=== PATIENT | male | born 1945 | race Caucasian/White ===

== ENCOUNTER 2019-05-12 11:56 | Outpatient (REF) | payer MEDICARE, SELFPAY ==
[2019-05-12 20:21] LABS: Anion Gap 8.7 mmol/L (3-11); BUN 22 mg/dL (7-18); CO2 28.3 mmol/L (21.0-32.0); CREATININE 1.01 mg/dL (0.70-1.30); Calcium 8.8 mg/dL (8.5-10.1); Chloride 105 mmol/L (98-107); Glucose 184 mg/dL (70-100); Potassium 4.5 mmol/L (3.5-5.1); Sodium 142 mmol/L (136-145)
[2019-05-15 10:43] LABS: PSA, Screening 2.9 ng/ml (0-6.5)
== END 2019-05-12 12:16 ==
LOC: NCHCN 11:56
PROVIDERS: PCP Nurse Practitioner Family; Visit Provider Nurse Practitioner Family
DX: N40.0 Benign prostatic hyperplasia without lower urinary tract symptoms (principal); Z12.5 Encounter for screening for malignant neoplasm of prostate; I10 Essential (primary) hypertension
CPT/HCPCS: 80048; 84153

== ENCOUNTER 2020-03-05 10:38 | Outpatient (REF) | payer MEDICARE, BC, SELFPAY ==
[2020-03-05 19:39] LABS: Absolute Basophil Count 0.01 k/cumm (0.0-0.2); Absolute Eosinophil Count 0.09 k/cumm (0.0-0.7); Absolute Lymphocyte Count 1.07 k/cumm (1.2-3.4); Absolute Monocyte Count 0.43 k/cumm (0.11-0.7); Absolute Neutrophil Count 2.28 k/cumm (1.2-6.7); Basophils % 0.3; Eosinophils % 2.3; HCT 42.4 % (40.0-50.0); Lymphocytes % 27.6; Mean Corpuscular Hemoglobin 31.4 pg (27.0-33.0); Mean Corpuscular Volume 95.1 fL (80-95); Mean Platelet Volume 11.1 fL (8.0-11.0); Monocytes % 11.1; Neutrophils % 58.7; Platelet Count 176 x1000/uL (130-400); RBC 4.46 m/cumm (4.50-6.00); RBC Distribution Width 14.4 % (11.8-14.1); White Blood Cell Count 3.88 k/cumm (4.4-10.8)
[2020-03-05 19:52] LABS: Hemoglobin A1C 8.5 % (3.8-5.6)
[2020-03-05 19:57] LABS: ALT 52 U/L (16-63); AST 26 U/L (15-37); Albumin 3.6 g/dL (3.4-5.0); Alkaline Phosphatase 95 U/L (46-116); Anion Gap 5.7 mmol/L (3-11); BUN 21 mg/dL (7-18); Bilirubin, Total 0.6 mg/dL (0.2-1.0); CO2 27.3 mmol/L (21.0-32.0); Calcium 8.6 mg/dL (8.5-10.1); Calculated LDL 96 mg/dL (<100); Chloride 104 mmol/L (98-107); Cholesterol 167 mg/dL (<200); Glucose 214 mg/dL (74-106); HDL Cholesterol 29 mg/dL (40-60); Potassium 4.7 mmol/L (3.5-5.1); Sodium 137 mmol/L (136-145); TSH (W/Ref FT4) 1.25 uIU/mL (0.36-3.74); Total Protein 6.2 g/dL (6.4-8.2); Triglyceride 210 mg/dL (<150)
== END 2020-03-05 10:58 ==
LOC: NCHCN 10:38
PROVIDERS: PCP Nurse Practitioner Family; Visit Provider Physician Assistant
DX: I10 Essential (primary) hypertension (principal); N40.0 Benign prostatic hyperplasia without lower urinary tract symptoms; E11.9 Type 2 diabetes mellitus without complications; E78.5 Hyperlipidemia, unspecified
CPT/HCPCS: 80053; 80061; 83036; 84443; 85025

== ENCOUNTER 2020-06-05 13:12 | Outpatient (REF) | payer MEDICARE, BC, SELFPAY ==
[2020-06-05 21:48] LABS: COMMENT (LAB VIEW ONLY) 111.21 mg/dL; Microalb ug/mg Crea 6.9 ug/mg Cr
== END 2020-06-05 13:32 ==
LOC: NCHCN 13:12
PROVIDERS: PCP Nurse Practitioner Family; Visit Provider Physician Assistant
DX: E11.9 Type 2 diabetes mellitus without complications (principal)
CPT/HCPCS: 82043; 82570

== ENCOUNTER 2022-02-12 19:31 | Outpatient (REF) | payer MEDICARE, BC, SELFPAY ==
[2022-02-12 20:19] LABS: Vitamin B12 350 pg/mL (193-986)
== END 2022-02-12 19:32 | disposition home or self-care (01) ==
LOC: NCHCN 19:31
PROVIDERS: PCP Nurse Practitioner Family; Visit Provider Nurse Practitioner Family
DX: R20.0 Anesthesia of skin (principal); R20.2 Paresthesia of skin
CPT/HCPCS: 82607

== ENCOUNTER 2022-08-31 13:32 | Outpatient (REF) | payer MEDICARE, BC, SELFPAY ==
[2022-08-31 19:39] LABS: Anion Gap 4.4 mmol/L (3-11); BUN 15 mg/dL (7-18); CO2 30.6 mmol/L (21.0-32.0); CREATININE 0.9 mg/dL (0.70-1.30); Calcium 8.6 mg/dL (8.5-10.1); Chloride 99 mmol/L (98-107); Estimated GFR 87.96 (mL/min/1.73m2); Glucose 126 mg/dL (74-106); Potassium 4.4 mmol/L (3.5-5.1); Sodium 134 mmol/L (136-145)
== END 2022-08-31 13:33 | disposition home or self-care (01) ==
LOC: NCHCN 13:32
PROVIDERS: PCP Nurse Practitioner Family; Visit Provider Internal Medicine
DX: U07.1 COVID-19 (principal)
CPT/HCPCS: 80048

== ENCOUNTER 2022-10-29 15:55 | Outpatient (REF) | payer MEDICARE, BC, SELFPAY ==
[2022-10-29 19:21] LABS: Abs Immature Grans 0.01 10^3/uL (0.0-0.06); Absolute Basophil Count 0.03 10^3/uL (0.0-0.2); Absolute Eosinophil Count 0.01 10^3/uL (0.0-0.7); Absolute Lymphocyte Count 1.45 10^3/uL (1.2-3.4); Absolute Monocyte Count 0.35 10^3/uL (0.1-0.8); Absolute Neutrophil Count 2.28 10^3/uL (1.2-6.7); Basophils % 0.7; Eosinophils % 0.2; HCT 40.3 % (40.0-50.0); HGB 13.3 g/dL (13.5-17.5); Immature Grans % 0.2; Lymphocytes % 35.1; MCV 94 fL (80-95); MPV 10.7 fL (8.0-11.0); Monocytes % 8.5; Neutrophils % 55.3; Platelet Count 181 10^3/uL (130-400); RBC 4.29 10^6/uL (4.36-5.78); RDW 14.5 % (11.8-14.1); WBC 4.13 10^3/uL (4.4-10.8)
[2022-10-29 19:58] LABS: CREATININE 0.8 mg/dL (0.70-1.30); Estimated GFR 91.15 (mL/min/1.73m2); TSH 1.07 uIU/mL (0.36-3.74); Vitamin B12 335 pg/mL (193-986)
[2022-11-02 12:52] LABS: Albumin 60.4 % (55.8-66.1); Albumin g/dL 3.8 g/dL (3.6-5.2); Total Protein 6.3 g/dL (6.3-8.2)
== END 2022-10-29 15:56 | disposition home or self-care (01) ==
LOC: NCHCN 15:55
PROVIDERS: PCP Nurse Practitioner Family; Visit Provider Internal Medicine
DX: G31.84 Mild cognitive impairment of uncertain or unknown etiology (principal); N20.0 Calculus of kidney; R20.0 Anesthesia of skin; E11.9 Type 2 diabetes mellitus without complications; I10 Essential (primary) hypertension
CPT/HCPCS: 82565; 82607; 84165; 84443; 85025

== ENCOUNTER 2022-12-21 17:23 | Outpatient (REF) | payer MEDICARE, BC, SELFPAY ==
[2022-12-21 19:08] LABS: Anion Gap 6.2 mmol/L (3-11); BUN 20 mg/dL (7-18); CO2 30.8 mmol/L (21.0-32.0); CREATININE 0.9 mg/dL (0.70-1.30); Calcium 8.8 mg/dL (8.5-10.1); Chloride 104 mmol/L (98-107); Estimated GFR 87.96 (mL/min/1.73m2); Glucose 151 mg/dL (74-106); Potassium 4.6 mmol/L (3.5-5.1); Sodium 141 mmol/L (136-145)
== END 2022-12-21 17:24 | disposition home or self-care (01) ==
LOC: NCHCN 17:23
PROVIDERS: PCP Nurse Practitioner Family; Visit Provider Nurse Practitioner Family
DX: E11.65 Type 2 diabetes mellitus with hyperglycemia (principal)
CPT/HCPCS: 80048

== ENCOUNTER 2024-02-18 08:57 | Outpatient (REF) | payer MEDICARE, BC, SELFPAY ==
[2024-02-18 18:49] LABS: Anion Gap 6.5 mmol/L (3-11); BUN 15 mg/dL (7-18); CO2 28.5 mmol/L (21.0-32.0); Calcium 8.6 mg/dL (8.5-10.1); Chloride 103 mmol/L (98-107); Estimated GFR 77.04 (mL/min/1.73m2); Glucose 221 mg/dL (74-106); Potassium 4.2 mmol/L (3.5-5.1); Sodium 138 mmol/L (136-145)
== END 2024-02-18 08:58 | disposition home or self-care (01) ==
LOC: NCHCN 08:57
PROVIDERS: PCP Nurse Practitioner Family; Visit Provider Nurse Practitioner Family
DX: U07.1 COVID-19 (principal)
CPT/HCPCS: 80048

== ENCOUNTER 2025-02-19 18:37 | Outpatient (REF) | payer MEDICARE, BC, SELFPAY ==
[2025-02-19 19:50] LABS: ALT 24 U/L (16-63); Anion Gap 10.3 mmol/L (3-11); BUN 29 mg/dL (7-18); CO2 27.7 mmol/L (21.0-32.0); Calcium 9.4 mg/dL (8.5-10.1); Chloride 104 mmol/L (98-107); Creatine Kinase 179 U/L (39-308); Estimated GFR 90.02 (mL/min/1.73m2); Glucose 152 mg/dL (74-106); Potassium 4.4 mmol/L (3.5-5.1); Sodium 142 mmol/L (136-145)
[2025-02-19 19:56] LABS: COMMENT (LAB VIEW ONLY) 125.77 mg/dL; Microalb ug/mg Crea 8.0 ug/mg Cr
[2025-02-19 20:02] LABS: Calculated LDL 54 mg/dL (<100); Cholesterol 119 mg/dL (<200); HDL Cholesterol 39 mg/dL (>or=40); Triglyceride 133 mg/dL (<150)
== END 2025-02-19 18:38 | disposition home or self-care (01) ==
LOC: NCHCN 18:37
PROVIDERS: PCP Nurse Practitioner Family; Visit Provider Internal Medicine
DX: R73.03 Prediabetes (principal)
CPT/HCPCS: 80048; 80061; 82550; 82043; 82570; 84460

== ENCOUNTER 2025-03-06 12:42 | Outpatient (REF) | payer MEDICARE, BC, SELFPAY | END 2025-03-06 12:43 | disposition home or self-care (01) | LOC: NCHCN 12:42 | PROVIDERS: PCP Nurse Practitioner Family; Visit Provider Internal Medicine | DX: R33.9 Retention of urine, unspecified (principal) | CPT/HCPCS: 87086 ==